=== PATIENT | male | born 1975 | race Two or more races ===

== ENCOUNTER 2016-12-06 09:52 | Emergency (ER) | payer OTHER ==
[~2016-12-06] VITALS: Ht 167.6 cm; Wt 63.5 kg
[2016-12-06 09:57] VITALS: BP 126/81
[2016-12-06] MEDS ORDERED: IBUPROFEN 400 MG TABLET ONE (10:26)
[2016-12-06] MEDS ORDERED: CYCLOBENZAPRINE 10 MG TABLET ONE (10:27)
[2016-12-06] MEDS ORDERED: CYCLOBENZAPRINE 10 MG TABLET PO ONE (10:30)
[2016-12-06] MEDS ORDERED: IBUPROFEN 400 MG TABLET PO ONE (10:30)
== END 2016-12-06 11:45 ==
LOC: ER 09:55
DX: S39.012A Strain of muscle, fascia and tendon of lower back, initial encounter (principal); S86.911A Strain of unspecified muscle(s) and tendon(s) at lower leg level, right leg, initial encounter; S86.912A Strain of unspecified muscle(s) and tendon(s) at lower leg level, left leg, initial encounter; S46.911A Strain of unspecified muscle, fascia and tendon at shoulder and upper arm level, right arm, initial encounter; S00.81XA Abrasion of other part of head, initial encounter; M25.561 Pain in right knee; M25.562 Pain in left knee; M25.511 Pain in right shoulder; V89.2XXA Person injured in unspecified motor-vehicle accident, traffic, initial encounter; Y93.89 Activity, other specified; Y92.89 Other specified places as the place of occurrence of the external cause; Y99.9 Unspecified external cause status
CPT/HCPCS: 72110-TC; 73030-TC; 73564-TC; A4606; Z7610